=== PATIENT | female | born 1950 | race Caucasian/White ===

== ENCOUNTER 2017-03-09 09:03 | Outpatient (CLI) | payer MEDICARE, BC ==
[~2017-03-09] VITALS: Ht 165.1 cm; Wt 74.1 kg
[~2017-03-09 09:03] MED LIST: BAYER CHEWABLE81 MG PO; CATAPRES0.1 MG PO; DURAGESIC1 PATCH .2 TD; FLEXERIL10 MG PO; GLIPIZIDE10 MG OR; GLUCOPHAGE1000 MG PO; LASIX40 MG PO; LEVEMIR100 U/M1 SQ; LISINOPRIL5 MG PO; NORVASC10 MG PO; PERCOCET 10/3251 TA1 PO; PLAVIX75 MG PO; RESTORIL15 MG PO; TOPROL XL100 MG PO
[2017-03-09 09:26] VITALS: BP 195/75; Ht 165.1 cm; Wt 74.1 kg
== END 2017-03-09 09:40 | disposition home or self-care (01) ==
LOC: D.OPS 09:03
DX: M81.0 Age-related osteoporosis without current pathological fracture (principal)

== ENCOUNTER 2018-03-15 13:04 | Outpatient (CLI) | payer MEDICARE, BC ==
[~2018-03-15] VITALS: Ht 165.1 cm; Wt 68.2 kg
[2018-03-15 13:45] VITALS: Ht 165.1 cm; Wt 68.2 kg
== END 2018-03-15 14:00 | disposition home or self-care (01) ==
LOC: D.OPS 13:04
DX: M81.0 Age-related osteoporosis without current pathological fracture (principal)

== ENCOUNTER 2019-03-05 12:44 | Outpatient (CLI) | payer MEDICARE, BC ==
[~2019-03-05] VITALS: Ht 167.6 cm; Wt 68.2 kg
[2019-03-05 13:07] VITALS: BP 170/84; Ht 167.6 cm; Wt 68.2 kg
== END 2019-03-05 13:20 | disposition home or self-care (01) ==
LOC: D.OPS 12:44
PROVIDERS: ATTEND Family Medicine
DX: M18.0 Bilateral primary osteoarthritis of first carpometacarpal joints (principal)

== ENCOUNTER 2019-10-16 15:38 | Inpatient (IN) | payer MEDICARE, BC ==
[~2019-10-16] VITALS: Ht 167.6 cm; Wt 62.3 kg
[2019-10-16 00:30] VITALS: BP 186/58
[~2019-10-16 15:38] MED LIST changes: +DURAGESIC1 PATCH .1; -DURAGESIC1 PATCH .2 TD
[2019-10-16 16:46] LABS: BASOPHILS 0.1 % (0-2); EOSINOPHILS 0.1 % (0-7); HEMATOCRIT 39.5 % (36.0-48.0); HEMOGLOBIN 13.8 g/dL (12-16); IMMATURE GRANULOCYTES 0.1 % (0-5); MCH 31.7 pg (26.0-34.0); MCHC 34.9 g/dL (31.0-37.0); MCV 90.8 fL (80.0-100.0); MEAN PLATELET VOLUME 10.4 fL (7.4-10.4); MONOCYTES 4.7 % (2-11); RBC 4.35 10x6/uL (4.00-5.40); RDW 12.9 % (11.5-14.5); WBC 7.7 10x3/uL (4.8-10.8)
[2019-10-16 16:54] VITALS: BP 131/69
[2019-10-16 16:55] LABS: PLATELET COUNT 383 10x3/uL (130-400)
[2019-10-16 17:00] LABS: APTT 29.2 SECONDS (22.8-39.4); INR 1.05 (0.85-1.17); PROTIME 13.6 SECONDS (11.6-15.0)
[2019-10-16 17:33] VITALS: BP 139/58
[2019-10-16 17:56] LABS: ALBUMIN 3.7 g/dL (3.4-5.0); ALKALINE PHOSPHATASE 108 U/L (46-116); ALT (SGPT) 24 U/L (10-68); CALCIUM 9.1 mg/dL (8.5-10.1); CARBON DIOXIDE 27.8 mmol/L (21.0-32.0); CKMB 0.4 U/L (0.0-3.6); CREATINE KINASE 21 UL (21-215); CREATININE - SERUM 0.9 mg/dL (0.6-1.3); GLUCOSE 183 mg/dL (74-106); MAGNESIUM - SERUM 1.2 mg/dL (1.8-2.4); PROTEIN - SERUM 6.9 g/dL (6.4-8.2); UREA NITROGEN 9 mg/dL (7-18); eGFR NON AFRICAN AMERICAN 65 mL/min (90-120)
[2019-10-16 18:03] LABS: TROPONIN-I 0.094 ng/mL (0.000-0.060)
--- NOTE | 2019-10-16 18:05 | NUR ---
TROPONIN 0.094 DR BONNER NOTIFIED.
[2019-10-16 18:11] LABS: CALC OSMOLALITY 288 mosm/kg (275-300); CHLORIDE - SERUM 104 mmol/L (98-107); POTASSIUM - SERUM 3.4 mmol/L (3.5-5.1); SODIUM 143 mmol/L (136-145)
[2019-10-16] MEDS ORDERED: ZANAFLEX4 MG PO (21:43)
[2019-10-16] MEDS ORDERED: NORVASC5 MG PO (21:45)
[2019-10-16] MEDS ORDERED: PERCOCET 5-3251 TAB PO (21:47)
[2019-10-16 21:56] VITALS: BP 188/72; BMI 22.1
--- NOTE | 2019-10-17 02:40 | NUR ---
PATIENT RESTING COMFORTABLY. RESPIRATIONS ARE EVEN AND UNLABORED. NO S/S OF DISTRESS. CALL LIGHT WITHIN REACH.
[2019-10-17 05:36] LABS: BASOPHILS 0.3 % (0-2); EOSINOPHILS 0.1 % (0-7); HEMATOCRIT 39.3 % (36.0-48.0); HEMOGLOBIN 13.3 g/dL (12-16); MCH 30.9 pg (26.0-34.0); MCHC 33.8 g/dL (31.0-37.0); MCV 91.4 fL (80.0-100.0); MEAN PLATELET VOLUME 10.6 fL (7.4-10.4); MONOCYTES 7.8 % (2-11); NEUTROPHILS 70.8 % (40-80); PLATELET COUNT 402 10x3/uL (130-400); WBC 7.2 10x3/uL (4.8-10.8)
[2019-10-17 06:22] LABS: CALC OSMOLALITY 287 mosm/kg (275-300); CALCIUM 8.8 mg/dL (8.5-10.1); CARBON DIOXIDE 27.2 mmol/L (21.0-32.0); CHLORIDE - SERUM 104 mmol/L (98-107); CREATININE - SERUM 0.9 mg/dL (0.6-1.3); GLUCOSE 172 mg/dL (74-106); MAGNESIUM - SERUM 1.4 mg/dL (1.8-2.4); PHOSPHOROUS 2.5 mg/dL (2.5-4.9); SODIUM 143 mmol/L (136-145); UREA NITROGEN 10 mg/dL (7-18); eGFR NON AFRICAN AMERICAN 65 mL/min (90-120)
[2019-10-17 06:28] LABS: TROPONIN-I < 0.017 ng/mL (0.000-0.060)
[2019-10-17 06:32] LABS: POTASSIUM - SERUM 2.9 mmol/L (3.5-5.1)
--- NOTE | 2019-10-17 06:44 | NUR ---
PAGED INSURANCE ACTUARY MD FOR CRITICAL LABS. RECEIVED RETURNED CALL ORDERS GIVEN.
--- NOTE | 2019-10-17 07:15 | NUR ---
ASSESSMENT DONE. DENIES NEEDS
[2019-10-17 08:27] VITALS: BP 210/77
[2019-10-17 11:11] VITALS: BP 157/60
[2019-10-17 13:27] LABS: ANION GAP 12.1 mmol/L (8-16); CALCIUM 8.6 mg/dL (8.5-10.1); CARBON DIOXIDE 28.2 mmol/L (21.0-32.0); POTASSIUM - SERUM 3.3 mmol/L (3.5-5.1)
[2019-10-17 13:30] LABS: CREATININE - SERUM 1.2 mg/dL (0.6-1.3)
--- NOTE | 2019-10-17 13:40 | NUR ---
I have reviewed this patient and I concur with the Shift Assessment completed by the Licensed Practical Nurse today this shift.
--- NOTE | 2019-10-17 14:04 | CN ---
PATIENT NAME:JUDSON PIPER MEDICAL RECORD: [id number] : 46 LOCATION:D. D.2120 ADMIT DATE: 10/16/19 ACCOUNT: [id number] CONSULTING PHYSICIAN: HINA MENDOZA MD REFERRING PHYSICIAN: TITI LORENZO MD DATE OF CONSULTATION: 10/16/2019 ADMITTING DIAGNOSES: 1. Diarrhea. 2. Dehydration. 3. Bradycardia. 4. Hypotension. 5. Noninsulin-dependent diabetes. HISTORY OF PRESENT ILLNESS: Mrs. Piper has a history of hypertension for which she is on clonidine, metoprolol, and Norvasc. However, recently, she has had significant diarrhea and dehydration. She has stopped her blood pressure medications approximately 2-3 days ago. She is bradycardic to the 40s and 50s nothing under 40, but she was on the metoprolol until then. Her systolic blood pressure initially was low. She has been given a fluid challenge. She is now at 140 for her systolic blood pressure, heart rates running 50. She has no chest pain or chest discomfort, no cardiac symptomatology. She has no significant ST-T abnormalities on the EKG and troponin is normal. She has not had a history of ischemic heart disease. PHYSICAL EXAMINATION: CONSTITUTIONAL/GENERAL APPEARANCE: Well nourished, well developed, appears stated age. EYES: Lids and conjunctivae noninjected. No discharge. No pallor. ENT: Lips within normal limit. No cyanosis. No pallor. NECK: Carotid arteries, bilateral normal upstroke. No bruits. No thrills. No jugular venous pressure or distention. CERVICAL LYMPH NODES: Nontender. Nonenlarged. THYROID: Not enlarged. No nodules. CARDIOVASCULAR: Precordial exam, nondisplaced. No heaves or pericardial thrills. Rate and rhythm, regular. Heart sounds, normal S1, normal S2. No S3, no gallop, no rub. Systolic murmur, not heard. Diastolic murmur, not heard. RESPIRATORY: Respiratory effort, unlabored. Normal curvature. No thoracic deformity. No chest wall tenderness. Percussion, resonant. Auscultation, clear. No wheezes, no rales, no rhonchi. ABDOMEN: Soft, nondistended, nontender. No abdominal pain, no vomiting and normal appetite. MUSCULOSKELETAL: No joint tenderness, normal gait, normal tone. SKIN: Warm and dry. OVERALL IMPRESSION: Bradycardia secondary to the metoprolol. This is still the effect of the metoprolol you know, she has been off it for 2 days. We will tell her to stay off the metoprolol. She can continue the Norvasc. If she has hypertension after she has been hydrated, but no beta blockade. Other than that, no other cardiac workup or treatment is necessary. TRANSINT:[id number] Voice Confirmation ID: [id number] DOCUMENT ID: [id number] CONSULT REPORT [id number] JUDSON PIPER JEFFREY MD at 1404 CC: [id number] DICTATION DATE: 10/16/19 173 PROCUREMENT BUYER: 10/17/19 0333 ADM IN [place] [id number] [place] [id number]
[2019-10-17 15:06] VITALS: BP 129/57
--- NOTE | 2019-10-17 19:00 | NUR ---
RECEIVED BEDSIDE REPORT. PATIENT IS ALERT AND ORIENTED, RESTING COMFORTABLY. RESPIRATIONS ARE EVEN AND UNLABORED. NO S/S OF DISTRESS. NO C/OPAIN. CALL LIGHT WITHIN REACH. WILL CPOC.
[2019-10-17 20:30] VITALS: BP 129/47
[2019-10-18] VITALS: BP 142/82
--- NOTE | 2019-10-18 01:49 | NUR ---
PATIENT RESTING COMFORTABLY. RESPIRATIONS ARE EVEN AND UNLABORED. NO S/S OF DISTRESS. NO C/O PAIN. CALL LIGHT WITHIN REACH. WILL CPOC.
[2019-10-18 04:30] VITALS: BP 126/51
[2019-10-18 04:34] LABS: BASOPHILS 0.5 % (0-2); EOSINOPHILS 0.2 % (0-7); HEMATOCRIT 35.6 % (36.0-48.0); HEMOGLOBIN 11.9 g/dL (12-16); LYMPHOCYTES 31.5 % (15-50); MCHC 33.4 g/dL (31.0-37.0); MCV 92.7 fL (80.0-100.0); MEAN PLATELET VOLUME 10.5 fL (7.4-10.4); MONOCYTES 7.8 % (2-11); RBC 3.84 10x6/uL (4.00-5.40); RDW 13.2 % (11.5-14.5); WBC 5.9 10x3/uL (4.8-10.8)
[2019-10-18 04:39] LABS: ANION GAP 10.9 mmol/L (8-16); CALCIUM 8.3 mg/dL (8.5-10.1); CARBON DIOXIDE 26.8 mmol/L (21.0-32.0); POTASSIUM - SERUM 3.7 mmol/L (3.5-5.1)
[2019-10-18 04:40] LABS: PLATELET COUNT 279 10x3/uL (130-400)
[2019-10-18 08:48] VITALS: BP 117/42
[2019-10-18 12:26] VITALS: BP 156/52
[2019-10-18 13:34] VITALS: Ht 167.6 cm; Wt 62.3 kg
[2019-10-18 16:02] VITALS: BP 161/66
--- NOTE | 2019-10-18 19:15 | NUR ---
RECEIVED REPORT, WILL ASSUME CARE OF PT, A&O, AHFFOSEX-SN-14, IV-LFA-NS W20K @75, DENIES ANY NEEDS AT THIS TIME, BED IS LOW, SRX2, CALL LIGHT IN REACH, WILL CONTINUE PLAN OF CARE
[2019-10-18 20:00] VITALS: BP 142/62
[2019-10-19] VITALS: BP 147/56
[2019-10-19 04:00] VITALS: BP 148/55
--- NOTE | 2019-10-19 05:11 | NUR ---
I have reviewed this patient and I concur with the Shift Assessment completed by the Licensed Practical Nurse today this shift.
--- NOTE | 2019-10-19 07:40 | NUR ---
AWAKE AND ORIENTED. TELEMERTY SHOWS SB 45. IV TO LEFT FA OF NS WITH 20K AT 75. C/O LEFT KNEE PAIN. OXYCODONE 10MG GIVEN FOR RELIEF. SR UP WITH CALL LIGHT IN REACH. WILL MONITOR
[2019-10-19 08:45] LABS: BASOPHILS 0.8 % (0-2); EOSINOPHILS 0.2 % (0-7); HEMATOCRIT 38.9 % (36.0-48.0); HEMOGLOBIN 13.2 g/dL (12-16); IMMATURE GRANULOCYTES 0.2 % (0-5); LYMPHOCYTES 35.8 % (15-50); MCH 31.1 pg (26.0-34.0); MCHC 33.9 g/dL (31.0-37.0); MCV 91.7 fL (80.0-100.0); MEAN PLATELET VOLUME 10.5 fL (7.4-10.4); MONOCYTES 5.7 % (2-11); NEUTROPHILS 57.3 % (40-80); PLATELET COUNT 303 10x3/uL (130-400); RBC 4.24 10x6/uL (4.00-5.40); WBC 4.9 10x3/uL (4.8-10.8)
[2019-10-19 09:02] VITALS: BP 136/58
[2019-10-19 09:19] LABS: CALCIUM 9.1 mg/dL (8.5-10.1); CARBON DIOXIDE 25.9 mmol/L (21.0-32.0); CHLORIDE - SERUM 107 mmol/L (98-107); POTASSIUM - SERUM 3.8 mmol/L (3.5-5.1); SODIUM 142 mmol/L (136-145); eGFR NON AFRICAN AMERICAN 87 mL/min (90-120)
[2019-10-19 09:21] LABS: CALC OSMOLALITY 282 mosm/kg (275-300); CREATININE - SERUM 0.7 mg/dL (0.6-1.3); GLUCOSE 130 mg/dL (74-106); UREA NITROGEN 8 mg/dL (7-18)
[2019-10-19] MEDS ORDERED: RESTORIL15 MG PO (11:55)
[2019-10-19] MEDS ORDERED: QUESTRAN LIG1 PACKET PO ×2 (11:59→12:00)
--- NOTE | 2019-10-19 12:29 | MORECARE ---
CASE MANAGEMENT DISCHARGE SUMMARY PATIENT: JUDSON PIPER UNIT: [id number] ADM DATE: 10/17/19 AGE: 69 : 48 SEX: F ROOM/BED: D.5760 AUTHOR: GRACIELADOC PHYSICIAN: REFERRING PHYSICIAN: TITI LORENZO MD DATE OF SERVICE: 10/19/19 Discharge Plan Patient Name: JUDSON PIPER Facility: [facility]:[place] : 1950 Planned Disposition: Anticipated Discharge Date: Discharge Date: Expected LOS: Initial Reviewer: [id number] Initial Review Date: 10/19/2019 Generated: 10/19/19 1:28 pm Comments DCP- Discharge Planning Updated by [email or web address]: Tiesha Babb on 10/19/19 11:[address] Patient Name: JUDSON PIPER Admission Status: ER Accout number: [id number] Admission Date: 10-17-2019 : 1950 Admission Diagnosis: Attending: TITI LORENZO Current LOS: 2 Anticipated DC Date: Planned Disposition: Primary Insurance: MEDICARE A & B Discharge Planning Comments: CM MET WITH PATIENT AND FAMILY AFTER OBTAINING VERBAL CONSENT. STATES PLANS TO DC TO HOME TODAY WITH . DENIES NEEDS FOR REHAB OR EQUIPMENT. PLANS TO RESUME HH WITH [facility]. JONAS SIGNED AND CM WILL FAX DOCUMENTS TO [facility]. Turret Lathe Set Up Operator: Tiesha Babb DCPIA - Discharge Planning Initial Assessment Updated by [id number]: Tiesha Babb on 10/19/19 12:24 pm * Is the patient Alert and Oriented? Yes * PCP MAURA * Preadmission Environment Home with Family * ADLs Independent * Equipment Bedside Commode * Other Equipment WALKER, CANE, WC * Community resources currently utilized Home Health * Please name any agencies selected above. [facility] * Additional services required to return to the preadmission environment? No * Can the patient safely return to the preadmission environment? Yes * Has this patient been hospitalized within the prior 30 days at any hospital? Yes External Providers [facility] Next Contact Date: Service Request Date: Service Type: Resolution: Reviewer: Comments: Coverage Notice Reviewer: [email or web address] Brenda Orozco Notice Issued Date-Time: 10/16/2019 19:00 Notice Type: Medicare Outpatient Observation Notice Notice Delivered To: Family Member Relationship to Patient: Spouse Power Station Operator Name: Ivan Piper Delivery Method: HAND - Hand Delivered Florinda Days: Prior Verbal Notification: Recipient Understood Notice: Yes Recipient Signature: Yes Med Rec Note Co-signed by Attending: Coverage Notice Comment: ADAM delivered to and signed by spouse. Original given to patient and one placed on chart. Reviewer: [id number] Brenda Babb Notice Issued Date-Time: 10/19/2019 12:22 Notice Type: Patient Choice Letter Notice Delivered To: Patient Relationship to Patient: Power Station Operator Name: Delivery Method: HAND - Hand Delivered Florinda Days: Prior Verbal Notification: Recipient Understood Notice: Yes Recipient Signature: Yes Med Rec Note Co-signed by Attending: Coverage Notice Comment: jonas to resume [facility] Patient Name: JUDSON PIPER Page 15021 at 1229 All edits/amendments must be made on the electronic document DICTATION DATE: 10/19/198 FOOD SERVICE CASHIER: RAFA 10/19/19 1228 RPT#: [id number] DC DATE: STATUS: ADM IN [facility] [address] [place] [address] END OF REPORT
--- NOTE | 2019-10-19 13:50 | NUR ---
I have reviewed this patient and I concur with the Shift Assessment completed by the Licensed Practical Nurse today this shift.
--- NOTE | 2019-10-19 14:01 | NUR ---
PT DISCHARGED. IV DCD WITH TIP INTACT. INSTRUCTIONS GIVEN TO PT. TO PRIVATE CAR PER WHEELCHAIR
--- NOTE | 2019-10-19 16:09 | MORECARE ---
CASE MANAGEMENT DISCHARGE SUMMARY PATIENT: JUDSON PIPER UNIT: [id number] ADM DATE: 10/17/19 AGE: 69 : 48 SEX: F ROOM/BED: D.6080 AUTHOR: GRACIELA,DOC PHYSICIAN: REFERRING PHYSICIAN: TITI LORENZO MD DATE OF SERVICE: 10/19/19 Discharge Plan Patient Name: JUDSON PIPER Facility: [facility]:[place] : 1950 Planned Disposition: Anticipated Discharge Date: Discharge Date: 10/19/2019 Expected LOS: Initial Reviewer: [email or web address] Initial Review Date: 10/19/2019 Generated: 10/19/19 5:08 pm Comments DCP- Discharge Planning Updated by [id number]: Tiesha Babb on 10/19/19 11:[address] Patient Name: JUDSON PIPER Admission Status: ER Accout number: [id number] Admission Date: 10-17-2019 : 1950 Admission Diagnosis: Attending: TITI LORENZO Current LOS: 2 Anticipated DC Date: Planned Disposition: Primary Insurance: MEDICARE A & B Discharge Planning Comments: CM MET WITH PATIENT AND FAMILY AFTER OBTAINING VERBAL CONSENT. STATES PLANS TO DC TO HOME TODAY WITH . DENIES NEEDS FOR REHAB OR EQUIPMENT. PLANS TO RESUME HH WITH [facility]. JONAS SIGNED AND CM WILL FAX DOCUMENTS TO [facility]. Spare Hand Carding: Tiesha Babb DCPIA - Discharge Planning Initial Assessment Updated by [id number]: Tiesha Babb on 10/19/19 12:24 pm * Is the patient Alert and Oriented? Yes * PCP MAURA * Preadmission Environment Home with Family * ADLs Independent * Equipment Bedside Commode * Other Equipment WALKER, CANE, WC * Community resources currently utilized Home Health * Please name any agencies selected above. [facility] * Additional services required to return to the preadmission environment? No * Can the patient safely return to the preadmission environment? Yes * Has this patient been hospitalized within the prior 30 days at any hospital? Yes Coverage Notice Reviewer: [id number] - Christine Orozco Notice Issued Date-Time: 10/16/2019 19:00 Notice Type: Medicare Outpatient Observation Notice Notice Delivered To: Family Member Relationship to Patient: Spouse [employer] Consultant Name: Ivan Piper Delivery Method: HAND - Hand Delivered Florinda Days: Prior Verbal Notification: Recipient Understood Notice: Yes Recipient Signature: Yes Med Rec Note Co-signed by Attending: Coverage Notice Comment: ADAM delivered to and signed by spouse. Original given to patient and one placed on chart. Reviewer: [id number] Brenda Babb Notice Issued Date-Time: 10/19/2019 12:22 Notice Type: Patient Choice Letter Notice Delivered To: Patient Relationship to Patient: [employer] Consultant Name: Delivery Method: HAND - Hand Delivered Florinda Days: Prior Verbal Notification: Recipient Understood Notice: Yes Recipient Signature: Yes Med Rec Note Co-signed by Attending: Coverage Notice Comment: jonas to resume [facility] Last DP export: 10/19/19 11:29 a Patient Name: JUDSON PIPER Page 84687 at 1609 All edits/amendments must be made on the electronic document DICTATION DATE: 10/19/198 HAND TOUCH UP PAINTER: RAFA 10/19/19 1608 RPT#: [id number] DC DATE:10/19/19 STATUS: DIS IN [facility] [address] [place] [address] END OF REPORT
== END 2019-10-19 14:12 | disposition home health service (06) | DRG 641 ==
LOC: D.ER 15:38 → D.M2 19:10 → OBSVTIME 19:10 → D.M2 10-17 17:03
PROVIDERS: Family Medicine; ADMIT Family Medicine; ATTEND Family Medicine
DX: E86.0 Dehydration (principal); I95.9 Hypotension, unspecified; K52.9 Noninfective gastroenteritis and colitis, unspecified; R00.1 Bradycardia, unspecified; E11.9 Type 2 diabetes mellitus without complications

== ENCOUNTER 2020-06-15 13:54 | Inpatient (IN) | payer MEDICARE, BC ==
[~2020-06-15] VITALS: Ht 167.6 cm; Wt 59.0 kg
[~2020-06-15 13:54] MED LIST changes: +COLESTID1 GM PO; +K-DUR20 MEQ PO; +LEVOTHYROXINE100 MCG PO; +LEVSIN/ANASP0.125 MG SL; +LOMOTIL 2.5-0.1 EAC1 PO; +NEURONTIN600 MG PO; +NORVASC5 MG PO; +PERCOCET 5-3251 TAB PO; +PHENERGAN25 M1 PO; +PHENERGAN25 MG RC; +PROTONIX40 MG PO; +QUESTRAN LIG1 PACKET PO; +ZANAFLEX4 MG PO; +ZOCOR40 MG PO
[2020-06-15 14:04] VITALS: BP 171/101
[2020-06-15 14:27] LABS: BASOPHILS 0.5 % (0-2); EOSINOPHILS 0.6 % (0-7); HEMATOCRIT 46.1 % (36.0-48.0); HEMOGLOBIN 16.9 g/dL (12-16); IMMATURE GRANULOCYTES 0.1 % (0-5); LYMPHOCYTES 21.9 % (15-50); MCHC 36.7 g/dL (31.0-37.0); MCV 84.6 fL (80.0-100.0); MONOCYTES 5.8 % (2-11); NEUTROPHILS 71.1 % (40-80); RBC 5.45 10x6/uL (4.00-5.40); RDW 13.2 % (11.5-14.5); WBC 8.7 10x3/uL (4.8-10.8)
[2020-06-15 14:29] LABS: PLATELET COUNT 382 10x3/uL (130-400)
[2020-06-15 14:53] LABS: ALBUMIN 4.2 g/dL (3.4-5.0); ALKALINE PHOSPHATASE 116 U/L (30-120); ALT (SGPT) 22 U/L (10-68); AMYLASE - SERUM 34 U/L (25-115); CALCIUM 9.4 mg/dL (8.5-10.1); CARBON DIOXIDE 14.3 mmol/L (21.0-32.0); CHLORIDE - SERUM 103 mmol/L (98-107); LIPASE 208 U/L (73-393); PROTEIN - SERUM 7.7 g/dL (6.4-8.2); SODIUM 138 mmol/L (136-145); UREA NITROGEN 47 mg/dL (7-18); eGFR NON AFRICAN AMERICAN 26 mL/min (90-120)
[2020-06-15 14:56] LABS: CALC OSMOLALITY 295 mosm/kg (275-300); GLUCOSE 239 mg/dL (74-106); TROPONIN-I < 0.017 ng/mL (0.000-0.060)
[2020-06-15 14:58] LABS: POTASSIUM - SERUM 2.5 mmol/L (3.5-5.1)
[2020-06-15 15:22] VITALS: BP 171/105
--- NOTE | 2020-06-15 15:30 | NUR ---
PT TO CT
[2020-06-15 16:53] LABS: BILIRUBIN NEGATIVE (NEGATIVE); KETONE NEGATIVE (NEGATIVE); NITRITE NEGATIVE (NEGATIVE); UROBILINOGEN NORMAL (NORMAL)
[2020-06-15 17:11] VITALS: BP 178/90
--- NOTE | 2020-06-15 17:40 | NUR ---
CHANGED INFUSION RATE ON POTASSIUM TO 50 ML/H D/T PT C/O BURNING IN HER ARM.
--- NOTE | 2020-06-15 17:41 | NUR ---
NORMAL SALINE 0.9% INFUSING AT 125 ML/H WITH 950 ML REMAINING ON TRANSFER TO FLOOR
--- NOTE | 2020-06-15 17:41 | NUR ---
POTASSIUM INFUSING AT 50 ML/H 100 ML LEFT ON ADMISSION TO FLOOR
--- NOTE | 2020-06-15 18:34 | NUR ---
RECEIVED TO FLOOR WITH FAMILY, AMBULATED TO BED. NO ACUTE SIGNS OF DISTRESS. WILL HAND OFF TO NEXT SHIFT.
[2020-06-15 18:35] VITALS: BP 168/83
--- NOTE | 2020-06-15 20:18 | NUR ---
LATE ENTRY: 20:18 DEMEROL 25 MG GIVEN IV FOR C/O BACK PAIN. 20:40 CL ANSWERED, PTS RIGHT ARM RED WITH BLOTCHES, PT STATES ARM IS ITCHING, PT DENIES SOB. VITALS STABLE. CALL PLACED TO PHYSIOTHERAPY AIDE TO REPORT POSSIBLE ADVERSE REACTION TO IV DEMEROL. 21:22 BENADRYL 25 MG AND PEPCID 20 MG GIVEN IV.
[2020-06-15 21:29] VITALS: BP 162/83
[2020-06-16 04:00] VITALS: BP 130/67
--- NOTE | 2020-06-16 04:42 | NUR ---
I have reviewed this patient and I concur with the Shift Assessment completed by the Licensed Practical Nurse today this shift.
[2020-06-16 05:20] LABS: BASOPHILS 0.6 % (0-2); EOSINOPHILS 1.1 % (0-7); HEMATOCRIT 37.1 % (36.0-48.0); IMMATURE GRANULOCYTES 0.2 % (0-5); LYMPHOCYTES 31.2 % (15-50); MCH 29.7 pg (26.0-34.0); MCHC 34.8 g/dL (31.0-37.0); MCV 85.5 fL (80.0-100.0); MEAN PLATELET VOLUME 10.1 fL (7.4-10.4); NEUTROPHILS 59.9 % (40-80); RDW 13.2 % (11.5-14.5)
[2020-06-16 05:21] LABS: HEMOGLOBIN 12.9 g/dL (12-16); PLATELET COUNT 298 10x3/uL (130-400); RBC 4.34 10x6/uL (4.00-5.40); WBC 5.3 10x3/uL (4.8-10.8)
[2020-06-16 05:48] LABS: ALBUMIN 3.2 g/dL (3.4-5.0); BILIRUBIN - TOTAL 0.27 mg/dL (0.2-1.3); CALCIUM 8.2 mg/dL (8.5-10.1); CARBON DIOXIDE 16.5 mmol/L (21.0-32.0); CREATININE - SERUM 1.6 mg/dL (0.6-1.3); MAGNESIUM - SERUM 1.3 mg/dL (1.8-2.4); PHOSPHOROUS 3.1 mg/dL (2.5-4.9); PROTEIN - SERUM 5.8 g/dL (6.4-8.2)
[2020-06-16 05:50] LABS: ANION GAP 18.3 mmol/L (8-16); POTASSIUM - SERUM 2.8 mmol/L (3.5-5.1)
--- NOTE | 2020-06-16 05:56 | NUR ---
PERCOCET 1 TAB GIVEN FOR C/O PAIN TO BACK, RATES PAIN AT A 9 ON PAIN SCALE. PT STATED THAT SHE CAN GO HOME AN HURT INSTEAD OF HURTING HERE. PT SIGHED HEAVILY WHEN TOLD IT WAS ONLY ONE TABLET AND TOOK OFF HER HEAD PHONES AND THREW THEM ON THE FLOOR. POTASSIUM 2.8 COVERED PER PROTOCOL.
--- NOTE | 2020-06-16 07:22 | NUR ---
PT LAYING SUPINE, RR EVEN AND UNLABORED. DENIES NEEDS OR PAIN AT THIS TIME. CALL LIGHT WITHIN REACH. BED IN LOWEST POSITION. WILL CONTINUE TO MONITOR.
[2020-06-16 07:50] VITALS: BP 133/75
[2020-06-16 10:24] VITALS: Ht 167.6 cm; Wt 59.0 kg
[2020-06-16 16:11] VITALS: BP 143/74
--- NOTE | 2020-06-16 16:40 | NUR ---
I have reviewed this patient and I concur with the Shift Assessment completed by the Licensed Practical Nurse today this shift.
--- NOTE | 2020-06-16 19:30 | NUR ---
REPORT RECEIVED, WILL CONT POC. PT A&O, RESTING QUIETLY IN BED. NO S/S OF DISTRESS OBSERVED. RR EVEN AND UNLABORED ON RA. PT REPORTS TO 2 DIARRHEA EPISODES SINCE 1899. NURSE ON HI REPORTED PT HAD DIARRHEA ALL DAY. WILL ASSESS EMAR FOR MED TO TREAT AND ADDRESS THE ISSUE. PT DENIES NEEDS AT THIS. BED LOCKED AND LOWERED, CALL LIGHT IN REACH. WILL CONT TO MONITOR.
[2020-06-16 20:43] VITALS: BP 106/49
[2020-06-17] VITALS: BP 102/56
[2020-06-17 04:00] VITALS: BP 118/53
[2020-06-17 06:27] LABS: BASOPHILS 0.6 % (0-2); EOSINOPHILS 0.9 % (0-7); HEMATOCRIT 33.9 % (36.0-48.0); HEMOGLOBIN 11.5 g/dL (12-16); LYMPHOCYTES 35.6 % (15-50); MCH 29.9 pg (26.0-34.0); MCHC 33.9 g/dL (31.0-37.0); MEAN PLATELET VOLUME 10.2 fL (7.4-10.4); NEUTROPHILS 56.9 % (40-80); PLATELET COUNT 245 10x3/uL (130-400); RBC 3.85 10x6/uL (4.00-5.40); RDW 13.9 % (11.5-14.5)
[2020-06-17 06:29] LABS: MCV 88.1 fL (80.0-100.0); WBC 3.2 10x3/uL (4.8-10.8)
[2020-06-17 06:52] LABS: ANION GAP 15.8 mmol/L (8-16); CALCIUM 7.9 mg/dL (8.5-10.1); CARBON DIOXIDE 17.9 mmol/L (21.0-32.0); MAGNESIUM - SERUM 1.3 mg/dL (1.8-2.4); POTASSIUM - SERUM 3.7 mmol/L (3.5-5.1)
[2020-06-17 07:16] LABS: CREATININE - SERUM 0.9 mg/dL (0.6-1.3); PHOSPHOROUS 2.1 mg/dL (2.5-4.9)
[2020-06-17 07:42] VITALS: BP 149/8
--- NOTE | 2020-06-17 09:11 | EC ---
PATIENT:JUDSON PIPER DATE OF SERVICE: 06/15/20 SEX: F MEDICAL RECORD: [id number] DATE OF : [birth year] LOCATION:D.M2 D.210 AGE OF PATIENT: 69 ADMISSION DATE: 06/15/20 REFERRING PHYSICIAN: INTERPRETING PHYSICIAN: KATHARINE DELANEY MD ECHOCARDIOGRAM REPORT ECHO CHARGES 4 ECHO COMPLETE Date: 06/16/20 CLINICAL DIAGNOSIS: ARRY ECHOCARDIOGRAPHIC MEASUREMENTS (adult normal given) AC root (d.<3.7cm) 2.6 cm LV Septum d (<1.2 cm> 0.7 cm Valve Excursion 1.4 cm LV Septum (systole) 0.7 cm Left Atria (s.<4.0cm> 4.0 cm LVPW d(<1.2cm) 0.9 cm RV (d.<2.3cm) 2.7 cm LVPW (sytole) 1.0 cm LV diastole(<5.6CM) 5.4 cm MV E-F(>70mm/sec) cm LV systole 4.7 cm LVOT Diameter 1.5 cm MV exc.(>10mm) 1.0 cm Est.ejection fraction (50-75%) % DOPPLER: LVIT cm/sec A 69 cm/sec E 59 cm/sec LA cm/sec RVSP 22.5 mmHg LVOT 120 cm/sec AOP1/2T m/s Asc. Ao 170 cm/sec RVOT 60 cm/sec RA cm/sec PA 89 cm/sec AV Gradient Peak 11.5 mmHg AV Mean 8.0 mmHg AV Area 1.5 cm MV Gradient Peak 2.3 mmHg MV Mean 1.2 mmHg MV Area cm COMMENTS: Differential Specialist: Jaci HEDRICK Ice Skater: 3 Dr. Sosa TAPE# PACS Pericardial Effusion N DATE OF SERVICE: Adequate 2D, color flow imaging, spectral Doppler, and M-Mode. No LVH. LV internal dimension is normal. Wall motion is normal. EF is greater than or equal to 55%. Aortic valve is tricuspid. No evidence of stenosis by Doppler interrogation. Left atrium is normal. Mitral valve shows no prolapse. Trace MR. Right-sided chambers are grossly normal. Trace TR. TRANSINT:[id number] Voice Confirmation ID: [id number] DOCUMENT ID: [id number] ECHOCARDIOGRAM REPORT [id number] PIPER,JUDSON DELANEY,KATHARINE Smith MD at 0911 CC: [id number] DICTATION DATE: 06/16/20 1629 STAFF CONSULTANT: 06/17/20 0044 ADM IN [facility] [address] [place] [id number]
--- NOTE | 2020-06-17 09:11 | CN ---
PATIENT NAME:JUDSON PIPER MEDICAL RECORD: [id number] : [birth year] LOCATION:DTawny D.2105 ADMIT DATE: 06/15/20 ACCOUNT: [id number] CONSULTING PHYSICIAN: KATHARINE DELANEY MD REFERRING PHYSICIAN: KVNG LOW MD DATE OF CONSULTATION: 06/16/2020 HISTORY OF PRESENT ILLNESS: A 69-year-old female with no known history of coronary artery disease. She has a history of ulcerative colitis as well as colon cancer status post colectomy. She has been having marked diarrhea, nausea and vomiting. It is not infrequent occurrence for her, admitted with intravascular volume depletion and dehydration. She is also noted to have some PACs, PVCs as well as palpitations. We are asked to see her concerning her cardiovascular status. PAST MEDICAL HISTORY: Includes; 1. History of hypertension. 2. Hyperlipidemia. 3. Status post colectomy. 4. Hypothyroidism, on replacement. 5. Diabetes mellitus. MEDICATIONS: Typically include promethazine 25 mg p.o. daily, Zanaflex 8 mg p.o. daily, Levsin 0.25 p.r.n., amlodipine 5 b.i.d., simvastatin 40 every day, Colestid 2 grams t.i.d., lisinopril 5 at bedtime, clonidine 0.1 as needed, fentanyl 50 mcg an hour every 72 hours, Restoril 30 at bedtime, Neurontin 600 t.i.d., Percocet 5/325 every 6 hours p.r.n., Lasix 40 every day, potassium 20 every day, Synthroid 100 mcg every day, glipizide 10 mg b.i.d. SOCIAL HISTORY: Nonsmoker, nondrinker. Typically is able to take care of all her ADLs, although recently has had more trouble because of generalized weakness. REVIEW OF SYSTEMS: The patient reports easy bruising but reports no swollen glands. The patient reports no fever, no night sweats, no significant weight gain, no significant weight loss. No significant exercise tolerance. The patient reports no dry eyes, no irritation, no vision change. Patient reports no difficulty hearing and no ear pain. Patient reports no frequent nose bleeds or nose and sinus problems. Patient reports on arm pain on exertion. No shortness of breath while lying down. No history of heart murmur. Patient reports no cough, no wheezing or coughing up blood. Patient reports no abdominal pain, no vomiting. Normal appetite. No diarrhea and not vomiting blood. No nausea and no constipation. Patient reports no incontinence. No difficulty urinating. No hematuria. No increased frequency. Patient reports no muscle aches. No weakness, no arthralgias, no back pain. No swelling of the extremities. Patient reports no abnormal mole, no jaundice, no rashes. Reports no loss of consciousness. No weakness and no numbness. No seizures, dizziness, or headaches. The patient reports no depression, no sleep disturbance, feeling safe in a relationship and no alcohol abuse. Patient reports on fatigue. Reports no runny nose or sinus pressure. No itching, no hives, and no frequent sneezing. PHYSICAL EXAMINATION: GENERAL: Pleasant female in no acute distress, appears stated age. VITAL SIGNS: Blood pressure 133/75, pulse 86 and regular. CONSULT REPORT [id number] JUDSON PIPER HEENT: Normocephalic, atraumatic. NECK: No JVD. Left carotid bruit. HEART: Regular, II/ systolic ejection murmur. LUNGS: Good air excursion. ABDOMEN: Soft, nontender. EXTREMITIES: Pulses 2+. There is no edema. IMPRESSION AND PLAN: Cardiac arrhythmias, probably related to intravascular volume depletion, hypokalemia, etc. Agree with current management with fluid hydration, electrolyte replacement. We will check echocardiographic study to make sure structurally sound cardiovascular as well as carotid Doppler given her carotid bruit. Further recommendations based on the above. TRANSINT:[id number] Voice Confirmation ID: [id number] DOCUMENT ID: [id number] KATHARINE DELANEY MD at 0911 CC: [id number] DICTATION DATE: 06/16/20922 MICROGRAPHICS SERVICES SUPERVISOR: 06/16/20 1225 ADM IN [place] [address] [place] [address]
[2020-06-17 11:29] VITALS: BP 96/48
--- NOTE | 2020-06-17 11:45 | MORECARE ---
CASE MANAGEMENT DISCHARGE SUMMARY PATIENT: JUDSON PIPER UNIT: [id number] ADM DATE: 06/15/20 AGE: 69 : 48 SEX: F ROOM/BED: D.3648 AUTHOR: NAOMY OWENS PHYSICIAN: REFERRING PHYSICIAN: KVNG LOW MD DATE OF SERVICE: 06/17/20 Discharge Plan Patient Name: JUDSON PIPER Facility: [facility]:[place] : 1950 Planned Disposition: Home Anticipated Discharge Date: Discharge Date: Expected LOS: Initial Reviewer: [id number] Initial Review Date: 06/17/2020 Generated: 06/17/20 12:45 pm Patient Name: JUDSON PIPER Page 21256 at 1145 All edits/amendments must be made on the electronic document DICTATION DATE: 06/17/20 1145 STOPER: RAFA 06/17/20 1145 RPT#: [id number] DC DATE: STATUS: ADM IN [facility] [address] [place] [address] END OF REPORT
--- NOTE | 2020-06-17 11:59 | MORECARE ---
CASE MANAGEMENT DISCHARGE SUMMARY PATIENT: JUDSON PIPER UNIT: [id number] ADM DATE: 06/15/20 AGE: 69 : [birth year] SEX: F ROOM/BED: D.2105 AUTHOR: NAOMY OWENS PHYSICIAN: REFERRING PHYSICIAN: KVNG LOW MD DATE OF SERVICE: 06/17/20 Discharge Plan Patient Name: JUDSON PIPER Facility: [facility]:[place] : 1950 Planned Disposition: Home Anticipated Discharge Date: Discharge Date: Expected LOS: Initial Reviewer: [email or web address] Initial Review Date: 06/17/2020 Generated: 06/17/20 12:58 pm DCPIA - Discharge Planning Initial Assessment Updated by [email or web address]: Alina Mcgrath on 06/17/20 11:52 am * Is the patient Alert and Oriented? Yes * PCP Dr. Henley * Pharmacy [facility] [place] [address] * Preadmission Environment Home with Family * ADLs Partial Dependent * Partial ADLs (Assistance needed) Ambulation * Equipment Bedside Commode Cane Walker Wheelchair * List name and contact numbers for known caregivers / representatives who currently or will assist patient after discharge: Ivan Piper - spouse - [phone] Sarah Pete - DTR - [phone] * Verbal permission to speak to the caregivers and representatives has been obtained from the patient. Yes * Community resources currently utilized None * Additional services required to return to the preadmission environment? No * Can the patient safely return to the preadmission environment? Yes * Has this patient been hospitalized within the prior 30 days at any hospital? No Last DP export: 06/17/20 10:46 am Patient Name: JUDSON PIPER Page 10260 at 1159 All edits/amendments must be made on the electronic document DICTATION DATE: 06/17/208 COMPOSITE BOAT BUILDER: RAFA 06/17/20 1158 RPT#: [id number] DC DATE: STATUS: ADM IN [facility] [address] [place] [address] END OF REPORT
--- NOTE | 2020-06-17 12:06 | MORECARE ---
CASE MANAGEMENT DISCHARGE SUMMARY PATIENT: JUDSON PIPER UNIT: [id number] ADM DATE: 06/15/20 AGE: 69 : 48 SEX: F ROOM/BED: D.2104 AUTHOR: GRACIELA,DOC PHYSICIAN: REFERRING PHYSICIAN: KVNG LOW MD DATE OF SERVICE: 06/17/20 Discharge Plan Patient Name: JUDSON PIPER Facility: [facility]:[place] : 1950 Planned Disposition: Home Anticipated Discharge Date: Discharge Date: Expected LOS: Initial Reviewer: [email or web address] Initial Review Date: 06/17/2020 Generated: 06/17/20 1:05 pm Comments DCP- Discharge Planning Updated by [email or web address]: Alina Mcgrath on 06/17/20 11:[address] Patient Name: JUDSON PIPER Admission Status: ER Accout number: [id number] Admission Date: 06-15-2020 : 1950 Admission Diagnosis:HYPOKALEMIA Attending: FLORA Current LOS: 2 Anticipated DC Date: Planned Disposition: Home Primary Insurance: MEDICARE A & B Discharge Planning Comments: CM met with patient to complete initial dc planning assessment. CM educated patient on the CM role and verbal consent given by patient to complete assessment. Patient lives at home with her spouse. At discharge patient plans to return and feels this is a safe discharge. CM discussed availability of home health, rehab services, and medical equipment. Patient denied known discharge needs at this time. States she uses her cane, walker or wheelchair for assist with ambulation, depending on need. States she has had home health in the past and does not want home health. CM will continue to follow and will assist as needed with dc plans/needs. Golf Course Keeper: Alina Mcgrath DCPIA - Discharge Planning Initial Assessment Updated by [email or web address]: Alina Mcgrath on 06/17/20 11:52 am * Is the patient Alert and Oriented? Yes * PCP Dr. Henley * Pharmacy [facility] [address] * Preadmission Environment Home with Family * ADLs Partial Dependent * Partial ADLs (Assistance needed) Ambulation * Equipment Bedside Commode Cane Walker Wheelchair * List name and contact numbers for known caregivers / representatives who currently or will assist patient after discharge: Ivan Piper - spouse - [phone] Sarah Juan R - DTR - [phone] * Verbal permission to speak to the caregivers and representatives has been obtained from the patient. Yes * Community resources currently utilized None * Additional services required to return to the preadmission environment? No * Can the patient safely return to the preadmission environment? Yes * Has this patient been hospitalized within the prior 30 days at any hospital? No Last DP export: 06/17/20 10:58 am Patient Name: JUDSON PIPER Page 10572 at 1206 All edits/amendments must be made on the electronic document DICTATION DATE: 06/17/201204 VINYL DIPPER: RAFA 06/17/201204 RPT#: [id number] DC DATE: STATUS: ADM IN [facility] [address] [place] [address] END OF REPORT
--- NOTE | 2020-06-17 15:40 | NUR ---
SALINE LOCK REMOVED, DISCHARGE PAPERS DISCUSSED WITH PATIENT, TO CAR VIA WHEELCHAIR AND HOME WITH DAUGHTER.
--- NOTE | 2020-06-18 09:28 | MORECARE ---
CASE MANAGEMENT DISCHARGE SUMMARY PATIENT: JUDSON PIPER UNIT: [id number] ADM DATE: 06/15/20 AGE: 69 : 46 SEX: F ROOM/BED: D.0427 AUTHOR: GRACIELA,DOC PHYSICIAN: REFERRING PHYSICIAN: KVNG LOW MD DATE OF SERVICE: 06/18/20 Discharge Plan Patient Name: JUDSON PIPER Facility: [facility]:[place] : 1950 Planned Disposition: Home Anticipated Discharge Date: Discharge Date: 06/17/2020 Expected LOS: Initial Reviewer: [email or web address] Initial Review Date: 06/17/2020 Generated: 06/18/20 10:28 am Comments DCP- Discharge Planning Updated by [email or web address]: Alina Mcgrath on 06/17/20 11:[address] Patient Name: JUDSON PIPER Admission Status: ER Accout number: [id number] Admission Date: 06-15-2020 : 1950 Admission Diagnosis:HYPOKALEMIA Attending: FLORA Current LOS: 2 Anticipated DC Date: Planned Disposition: Home Primary Insurance: MEDICARE A & B Discharge Planning Comments: CM met with patient to complete initial dc planning assessment. CM educated patient on the CM role and verbal consent given by patient to complete assessment. Patient lives at home with her spouse. At discharge patient plans to return and feels this is a safe discharge. CM discussed availability of home health, rehab services, and medical equipment. Patient denied known discharge needs at this time. States she uses her cane, walker or wheelchair for assist with ambulation, depending on need. States she has had home health in the past and does not want home health. CM will continue to follow and will assist as needed with dc plans/needs. Diabetes Clinical Manager: Alina Mcgrath DCPIA - Discharge Planning Initial Assessment Updated by [email or web address]: Alina Mcgrath on 06/17/20 11:52 am * Is the patient Alert and Oriented? Yes * PCP Dr. Henley * Pharmacy [facility] [address] * Preadmission Environment Home with Family * ADLs Partial Dependent * Partial ADLs (Assistance needed) Ambulation * Equipment Bedside Commode Cane Walker Wheelchair * List name and contact numbers for known caregivers / representatives who currently or will assist patient after discharge: Ivan Piper - spouse - [phone] Sarah Juan R - DTR - [phone] * Verbal permission to speak to the caregivers and representatives has been obtained from the patient. Yes * Community resources currently utilized None * Additional services required to return to the preadmission environment? No * Can the patient safely return to the preadmission environment? Yes * Has this patient been hospitalized within the prior 30 days at any hospital? No Last DP export: 06/17/20 11:06 am Patient Name: JUDSON PIEPR Page [id number] at 0928 All edits/amendments must be made on the electronic document DICTATION DATE: 06/18/20927 ONLINE HEALTH AND FITNESS COACH: RAFA 06/18/20927 RPT#: [id number] DC DATE:06/17/20 STATUS: DIS IN [facility] [address] [place] [address] END OF REPORT
[2020-06-19 20:07] LABS: OVA + PARASITE EXAM Final report (())
== END 2020-06-17 15:47 | disposition home or self-care (01) | DRG 641 ==
LOC: D.ER 13:54 → D.M2 16:47
PROVIDERS: Family Medicine; ADMIT Family Medicine; ATTEND Family Medicine
DX: E86.0 Dehydration (principal); N17.9 Acute kidney failure, unspecified; E11.9 Type 2 diabetes mellitus without complications; K52.9 Noninfective gastroenteritis and colitis, unspecified; I10 Essential (primary) hypertension; G89.29 Other chronic pain; E87.6 Hypokalemia